=== PATIENT | female | born 1985 | race Hispanic/Latino ===

== ENCOUNTER 2017-08-23 18:52 | Emergency (ER) | payer OTHER ==
[~2017-08-23] VITALS: Ht 154.9 cm; Wt 87.1 kg
[~2017-08-23 18:52] MED LIST: CEFU250T2 PO; NITR100 PO
[2017-08-23 19:09] VITALS: BP 149/110; PULSE 111; RESP 16; O2SAT 100
--- NOTE | 2017-08-23 19:50 | ED.REPORT ---
HPI-General Illness Date of Service Aug 23, 2017 ED Provider: Young Burks DO This is a healthy 32-year-old female who presents with fever, chills and cough. Evidently she was diagnosed with pneumonia/bronchitis and she was given an injectable antibiotic and placed an oral antibiotic. The antibiotic oral is Augmentin. Shortly after taking the Augmentin she said multiple bouts of vomiting. She now presents for an nauseous and feeling rather ill. No chest pain. No shortness of breath. No hemoptysis. No pulmonary emboli or DVT risk factors. Symptoms started with a classic URI and sore throat and sinus congestion. Nursing Notes Stated Complaint: REACTION TO SHOT, VOMITING, SHORTNESS OF BREATH Chief Complaint: Allergic Reaction Nursing Notes Reviewed: Yes Allergies: Coded Allergies: oxycodone (Verified Adverse Reaction, Unknown, itching, 08/23/17) Scheduled Cefuroxime Axetil (Ceftin) 250 Mg Tablet 250 MG PO BID Nitrofurantoin Monohyd/M-Cryst (MacroBid) 100 Mg Capsule 100 MG PO BID General Time Seen by MD: 19:49 Chief Complaint Vomiting Hx Obtained From: Patient Arrived By: Walk-in Sudden in Onset?: No Onset Occurred: 2 days ago Symptom Duration: Since onset Location: : Chest Quality: Painful Radiation: : Does not radiate Severity: Current: Moderate Severity: Maximum: Moderate Recent Healthcare: Recent doctor visit Similar Sx Previous: No Past Medical History Past Medical History Headaches Past Surgical History None reported Reports: Cholecystectomy Family History Noncontributory Smoking History Never Smoker Social History Alcohol Use: Denies alcohol use Drug Use: Denies drug use Other Social History: Good social support, Lives with children, Local resident Ambulatory Status Independent Review of Systems Full Review of Systems Constitutional: Reports: Chills, Denies: Fever Eyes: Denies: Blurred left, Blurred right Ears / Nose / Throat: Denies: Ear drainage left Respiratory: Reports: Non-productive cough GI: Reports: Vomiting Female: Denies: Dysuria Neurologic: Reports: Dizziness, Headache, Denies: Syncope Complete sys rev & neg: except as marked. Physical Exam Vital Signs Vital Signs Date Time Temp Pulse Resp B/P Pulse Ox O2 Delivery O2 Flow Rate FiO2 08/24/17 01:30 36.7 61 16 125/86 98 Room Air 08/23/17 19:09 36.9 111 16 149/110 100 Room Air Initial VS: Reviewed Head / Eyes: Atraumatic, Normocephalic Neck: Supple, Full range of motion Respiratory: Breath sounds normal, Clear to auscultation, No respiratory distress Cardiovascular: Regular rate & rhythm, Heart sounds normal, Intact distal pulses Abdomen / GI: Soft, Non-tender Extremities: Vascular intact, Neuro intact Skin: Warm, Dry, No cyanosis Neurologic: Alert, Oriented, Nonfocal Psychiatric: Mood/affect normal, Behavior normal General/Constitutional: Awake, Alert Interpretation & Diagnostics Lab Results Interpretation Result Diagram: 08/23/17211208/23/172112 Test 08/23/17 21:13 08/23/17 23:03 White Blood Count 9.7th/mm3 (3.8-10.1) Red Blood Count 5.16mil/mm3 (3.90-5.20) Hemoglobin 13.8g/dL (12.0-15.6) Hematocrit 41.5% (35.0-46.0) Mean Corpuscular Volume 80.4fL (81-100) Mean Corpuscular Hemoglobin 26.7pg (27.0-35.0) Mean Corpuscular Hemoglobin Concent 33.3% (32.0-37.0) Red Cell Distribution Width 14.6% (12.3-15.4) Platelet Count 355bil/L (150-400) Neutrophils (%) (Auto) 66.4% (40-74) Lymphocytes (%) (Auto) 22.9% (14-46) Monocytes (%) (Auto) 9.4% (4-12) Eosinophils (%) (Auto) 0.9% (0-5) Basophils (%) (Auto) 0.2% (0-3) Sodium Level 140mEq/L (134-144) Potassium Level 4.2mEq/L (3.5-5.2) Chloride Level 97mEq/L (97-108) Carbon Dioxide Level 27mmol/L (18-29) Blood Urea Nitrogen 14mg/dL (6-20) Creatinine 0.99mg/dL (0.57-1.00) Estimat Glomerular Filtration Rate 94mL/min (>59) Glucose Level 103mg/dL (60-99) Calcium Level 9.6mg/dL (8.5-10.1) Total Bilirubin 0.4mg/dL (0.0-1.2) Aspartate Amino Transf (AST/SGOT) 35U/L (0-50) Alanine Aminotransferase (ALT/SGPT) 25U/L (0-32) Alkaline Phosphatase 84U/L (25-150) Troponin T 0.010ug/L (0.0-0.011) Total Protein 8.5g/dL (6.4-8.4) Albumin 4.4g/dL (3.4-5.0) Lipase 27U/L (13-60) Human Chorionic Gonadotropin, Qual Negative (Negative) Urine Color Dark yellow (YELLOW) Urine Appearance Cloudy (CLEAR,HAZY) Urine pH 7.0 (5.0-8.0) Urine Specific [place] 1.025 (1.003-1.035) Urine Protein >300mg/dL (NEG,TRACE) Urine Glucose (UA) Negativemg/dL (NEGATIVE) Urine Ketones >80mg/dL (NEGATIVE) Urine Occult Blood Large (NEGATIVE) Urine Nitrite Negative (NEGATIVE) Urine Bilirubin Negative (NEGATIVE) Urine Urobilinogen 2.0mg/dL (NORMAL) Urine Leukocyte Esterase Negative (NEGATIVE) Urine RBC >50/hpf (0-2) Urine WBC 6-10/hpf (0-5) Urine Epithelial Cells Moderate/hpf (NONE-MOD) Urine Crystals None seen (NONE SEEN) Urine Bacteria Few/hpf (NONE-FEW) Urine Hyaline Casts None/lpf (NONE) Urine Granular Casts None seen (NONE SEEN) Urine Waxy Casts None seen (NONE SEEN) Urine Red Blood Cell Casts None seen (NONE SEEN) Urine White Blood Cell Casts None seen (NONE SEEN) Urine Mucus Present (None Seen) Urine Trichomonas None seen (NONE SEEN) Urine Yeast None (NONE SEEN) Urinalysis Comment None Urine Culture Reflexed Indicated ECG Interpretation Time: 21:05 Interpreted by: ED physician Normal ECG Interpretation: Normal ECG w/ rate of... (98) X-Ray Chest Interpretation Chest Xray Interpretation: IMPRESSION: Mild atypical pneumonia. Dictated by: Clay Pittman M.D. on 08/23/2017 at 20:56 View: Portable, 1 view Interpretation / Wet Read by: Interpret - Radiologist Re-Eval/Medical Decision Med Decision/Clinical Course Healthy 32-year-old female with community-acquired pneumonia. She is treated with IV antibiotics and no indication for nausea. I suspect that nauseous [place] drug reaction. We will switch her antibiotics to avoid the Augmentin. Recommend close outpatient follow-up. DC and pulmonary embolus highly unlikely based on history and physical examination. Source of Hx: Old records Time of Eval: 20:23 Re-Evaluation/Progress Note: Informed pt of plan for labs, x-ray, as well as plan to change antibiotic secondary to possible allergic reaction to Augmentin. Pt understands and agrees with plan. All questions addressed. Time of Eval: 00:40 Re-Evaluation/Progress Note: Pt rechecked. She is feeling better and would like to go home. Informed pt of plan for discharge. Pt understands and agrees with plan for discharge. F/U instructions and RTER warnings given. All questions addressed. Counseled Regarding: Diagnosis, Lab results, Need for follow-up, When/why to return to ED Discharge & Departure Primary Impression: Pneumonia Pneumonia type: due to unspecified organism Laterality: unspecified laterality Lung location: unspecified part of lung Qualified Code: J18.9 - Pneumonia, unspecified organism Additional Impression: Adverse drug reaction Encounter type: initial encounter Qualified Code: T88.7XXA - Unspecified adverse effect of drug or medicament, initial encounter Disposition: Home Discharge Condition All VS Reviewed: Yes Condition: Stable Patient Instructions: Adverse Drug Reaction (ED), Pneumonia (ED) Additional Instructions: Doxycycline 2x daily for 7 days. Avoid direct sunlight while taking Doxycycline. Tylenol and Motrin as directed for fever and pain. Avoid taking Amoxicillin in the future. Call your primary care provider tomorrow for a follow up appointment this week. Return to the Emergency Department for any new or concerning symptoms such as shortness of breath, chest pain, neck stiffness, or any other worrisome symptoms. Referrals: [facility] (PCP) Jose Attestation Portions of this note were transcribed by Wanda Harkins. I, Dr. Burks personally performed the history, physical exam and medical decision-making; I reviewed and confirmed the accuracy of the information in the transcribed note. Signed by : Jose Pineda, 08/23/17. copies to: [facility] Young Burks DO Aug 23, 2017 19:50 Wanda Snowden Aug 23, 2017 20:40
[2017-08-23] MEDS ORDERED: 0.9% Sodium Chloride 1,000 ML IV SCH (20:30)
--- NOTE | 2017-08-23 20:58 | DRSVH ---
PROCEDURE: X-RAY CHEST, TWO VIEWS ([id number]) INDICATIONS: cough TECHNIQUE: 2 views of the chest were acquired. COMPARISON: [facility], CR, XR CHEST 2VW, 08/28/2015, 11:05. [facility], CR, CHEST 1VW (PORTABLE), 05/21/2014, 20:09. FINDINGS: Surgical changes and devices: None. Lungs and pleura: No pleural effusions or pneumothorax. Mild bilateral perihilar and basilar interst itial opacity. Mediastinum: Mediastinal contours are normal. Heart size is normal. Bones and chest wall: No suspicious bony abnormalities. Soft tissues appear unremarkable. IMPRESSION: Mild atypical pneumonia. Dictated by: Clay Pittman M.D. on 08/23/2017 at 20:56 Approved by: Clay Pittman M.D. on 08/23/2017 at 20:56
[2017-08-23] MEDS: Ondansetron 2 mg/mL 2 mL Inj IVPUSH PRN ×2 (21:17→21:37)
[2017-08-23 21:20] LABS: BASOPHILS % (AUTO) 0.2 % (0-3); EOSINOPHILS % (AUTO) 0.9 % (0-5); MONOCYTES % (AUTO) 9.4 % (4-12); Mean Corpuscular Hemoglobin 26.7 pg (27.0-35.0); Mean Corpuscular Volume 80.4 fL (81-100); NEUTROPHILS % (AUTO) 66.4 % (40-74); Platelet Count 355 bil/L (150-400)
[2017-08-23] MEDS ORDERED: Azithromycin Inj 500 MG in Dextrose 5% w/Vial Mate 250 ML IV ONE (21:25)
[2017-08-23] MEDS ORDERED: cefTRIAXone Inj 2,000 MG in Dextrose 5% Minibag Plus 50 ML IV ONE (21:25)
[2017-08-23 21:49] LABS: Lipase 27 U/L (13-60)
[2017-08-23] MEDS ORDERED: Promethazine Inj 12.5 MG in Dextrose 5%-Pha MIX 50 ML IV ONE (22:15)
[2017-08-23 23:14] LABS: APPEARANCE,URINE CLOUDY (CLEAR,HAZY); COLOR,URINE DARK YELLOW (YELLOW); OCCULT BLOOD,URINE LARGE (NEGATIVE)
[2017-08-24 01:30] VITALS: BP 125/86; PULSE 61; RESP 16; O2SAT 98
== END 2017-08-24 01:25 | disposition home or self-care (01) ==
LOC: SED 18:52
DX: J18.9 Pneumonia, unspecified organism (principal); R11.10 Vomiting, unspecified; T36.0X5A Adverse effect of penicillins, initial encounter; Y84.8 Other medical procedures as the cause of abnormal reaction of the patient, or of later complication, without mention of misadventure at the time of the procedure; Y92.9 Unspecified place or not applicable; Y99.8 Other external cause status; Z88.5 Allergy status to narcotic agent
CPT/HCPCS: 36415; 71020; 80053; 81000; 83690; 84484; 84703; 85025; 87086; 93005; 96365; 96367; 96375; 99285; J0456; J0696; J1200; J1885; J2405; J2550; J7030